=== PATIENT | male | born 1980 | race Caucasian/White ===

== ENCOUNTER → 2019-10-29 | Outpatient (CLI) | payer OTHER ==
--- NOTE | 2019-11-05 17:14 | REP ---
RIGHT FOOT SERIES CLINICAL: Nontraumatic heel pain. TECHNIQUE: AP, lateral, and bilateral oblique views of the right foot. FINDINGS: Osseous structures, joint spaces, and surrounding soft tissues appear relatively normal for age. No obvious acute injury. No healed abnormalities are identified. The surrounding soft tissues are clear and without subcutaneous emphysema or foreign body. IMPRESSION: Essentially age appropriate right foot examination. [id number]
== END ==
LOC: M WUC 09:10
PROVIDERS: ATTEND Physician Assistant
DX: M25.571 Pain in right ankle and joints of right foot (principal)

== ENCOUNTER 2020-10-19 10:00 | Emergency (ER) | payer OTHER ==
[~2020-10-19] VITALS: Ht 185.4 cm; Wt 209.0 kg
[2020-10-19] MEDS ORDERED: NS 1,000 ML IV ONE (10:10)
[2020-10-19] MEDS ORDERED: ISOVUE-370 76% 100ML VIAL As Ordered ONE (10:14)
[2020-10-19] MEDS ORDERED: HEPARIN SOD (PORCINE) 5000UNITS/ML 1ML VIAL/SYRINGE As Ordered ONE (10:17)
[2020-10-19 10:19] LABS: BASO # 0.1 10^3/uL (0.0-0.2); BASO % 0.3 % (0.0-1.0); EOS # 0.2 10^3/uL (0.0-0.5); EOS % 1.5 % (0.0-3.0); HEMATOCRIT 40.4 % (42.0-52.0); HEMOGLOBIN 12.6 g/dl (13.5-17.5); LYMPH # 2.7 10^3/uL (1.5-5.0); LYMPH % 16.6 % (24.0-44.0); MEAN CORPUSCULAR HEMOGLOBIN 28.8 pg (27.0-33.0); MEAN CORPUSCULAR HGB CONC 31.2 g/dl (32.0-36.5); MEAN CORPUSCULAR VOLUME 92.2 fl (80.0-96.0); MONO # 0.9 10^3/uL (0.0-0.8); MONO % 5.4 % (2.0-8.0); NEUTROPHILS # 12.5 10^3/uL (1.5-8.5); NEUTROPHILS % 75.5 % (36.0-66.0); PLATELET COUNT, AUTOMATED 308 10^3/uL (150-450); RED BLOOD COUNT 4.38 10^6/uL (4.30-6.10); WHITE BLOOD COUNT 16.5 10^3/uL (4.0-10.0)
[2020-10-19 10:29] LABS: INR 0.95
[2020-10-19 10:30] LABS: PARTIAL THROMBOPLASTIN TIME 23.4 SECONDS (25.9-37.0)
[2020-10-19] MEDS ORDERED: FURO20TA2 (10:38)
--- NOTE | 2020-10-19 10:49 | REPVR ---
PROCEDURE INFORMATION: Exam: CT Lumbar Spine Without Contrast Exam date and time: 10/19/2020 10:40 AM Age: 39 years old Clinical indication: Injury or trauma; Blunt trauma (contusions or hematomas) TECHNIQUE: Imaging protocol: Computed tomography images of the lumbar spine without contrast. Radiation optimization: All CT scans at this facility use at least one of these dose optimization techniques: automated exposure control; mA and/or kV adjustment per patient size (includes targeted exams where dose is matched to clinical indication); or iterative reconstruction. COMPARISON: No relevant prior studies available. FINDINGS: Vertebrae: No acute bony injury or malalignment in the lumbar spine. Contour irregularity involving the right L1 transverse process, believed to be chronic. Schmorl's nodes, vertebral endplate irregularity, and marginal osteophytes. Discs/Spinal canal/Neural foramina: No acute findings. Other bones/joints: Acute fracture involving the right 12th posterior rib. Liver: Fatty infiltration of the incompletely visualized liver. Spleen: Enlarged spleen measuring 12.5 cm in length. Kidneys and ureters: Poorly characterized 9 mm nodular hypodense lesion in the anterior left kidney. Soft tissues: Infiltration of right posterior subcutaneous fat. IMPRESSION: 1. No acute bony injury or malalignment in the lumbar spine. 2. Acute fracture involving the right 12th posterior rib. COMMENTS: Consistent with the [employer]'s Incidental Findings Committee white paper (J Am Autumn Radiol 2018): Any incidental renal lesion less than 1 cm or classified as too small to characterize, or any incidental cystic renal lesion characterized as simple-appearing, is likely benign. No follow-up imaging is recommended for these lesions per consensus recommendations based on imaging criteria. Electronically signed by: Luis Fernando Nix On 10/19/2020 10:49:31 AM
--- NOTE | 2020-10-19 10:49 | REP ---
INDICATION: Trauma COMPARISON: None TECHNIQUE: Axial contrast enhanced images from the thoracic inlet to the upper abdomen with coronal and sagittal reformations using 100 ml Isovue 370 intravenous contrast material. Coronal and sagittal reformations obtained followed by CT of the abdomen and pelvis. This CT examination was performed using the following dose reduction techniques: Automated exposure control, adjustment of mA and/or kv according to the patient's size, and use of iterative reconstruction technique. FINDINGS: Lung hopkins demonstrate decreased inspiratory effort causing subtle nonspecific ground-glass opacities primarily involving the lower lobes. No consolidation/contusion, effusion, or pneumothorax. Tracheobronchial tree is patent. Mediastinum demonstrates normal appearance of the thoracic aorta, pulmonary vasculature, and heart/pericardium. No adenopathy. Extremely subtle nondisplaced fractures are identified involving the anterolateral margins of the right 6th, 7th and 8th ribs. IMPRESSION: 1. Extremely subtle nondisplaced right sided rib fractures. No associated overlying soft tissue injury or underlying pleuroparenchymal injury. 2. No acute mediastinal or pleuroparenchymal process. <Electronically signed by Laek Mclean > 10/19/20 [id number]
[2020-10-19 10:54] LABS: ALT/SGPT 114 U/L (12-78); AMYLASE 21 U/L (25-115); BILIRUBIN,DIRECT 0.1 MG/DL (0.0-0.2); BILIRUBIN,TOTAL 0.5 MG/DL (0.2-1.0); BLOOD UREA NITROGEN 17 MG/DL (7-18); CALCIUM LEVEL 8.1 MG/DL (8.5-10.1); CARBON DIOXIDE LEVEL 27 MEQ/L (21-32); CHLORIDE LEVEL 107 MEQ/L (98-107); CK-MB VALUE MASS 1.3 NG/ML (<3.6); CPK CREATINE PHOSPHOKINASE 175 U/L (39-308); CREATININE FOR GFR 1.23 MG/DL (0.70-1.30); GLOMERULAR FILTRATION RATE > 60.0 (>60); GLUCOSE, FASTING 203 MG/DL (70-100); LIPASE 59 U/L (73-393); MB/CK RELATIVE INDEX 0.74 (< OR =4); SODIUM LEVEL 141 MEQ/L (136-145); TOTAL PROTEIN 6.2 GM/DL (6.4-8.2); TROPONIN I < 0.02 NG/ML (< 0.10)
--- NOTE | 2020-10-19 10:54 | REP ---
INDICATION: Trauma. COMPARISON: None TECHNIQUE: Axial contrast-enhanced images from the lung bases to the pubic symphysis using 100 cc Isovue 370 intravenous contrast material. Coronal and sagittal reformations obtained. This CT examination was performed using the following dose reduction techniques: Automated exposure control, adjustment of mA and/or kv according to the patient's size, and the use of iterative reconstruction technique. FINDINGS: Hepatomegaly and hepatosteatosis noted. Spleen, pancreas, gallbladder, bilateral adrenal glands and kidneys are normal. There is no evidence for solid organ injury. The enteric system is without acute obstruction, obvious injury or pathology. There is a peritoneal defect along the posterior right flank below the level of the kidney with herniation of the mesenteric fat and nonobstructed portion of the cecum into the deep subcutaneous right flank which is nonacute and should be correlated with prior surgical procedure (series 205; images 104-125). Pelvis demonstrates normal bladder and age-appropriate prostate/seminal vesicles. No ascites. No free air. No intraperitoneal or retroperitoneal adenopathy. Abdominal aorta and vasculature appear normal. Osseous structures are intact and without acute pathology or injury. IMPRESSION: 1. No acute abdominopelvic pathology appreciated. 2. No evidence for acute injury. 3. Peritoneal defect along the right flank with herniation of the mesenteric fat and nonobstructed cecum appears chronic and likely related to prior surgical procedure. <Electronically signed by Lake Mclean > 10/19/20 [id number]
[2020-10-19 11:00] LABS: RSV AMPLIFICATION NEGATIVE (NEGATIVE)
[2020-10-19] MEDS ORDERED: ceFAZolin SOD 2 GM in IV 1 EA IV ONE (11:10)
[2020-10-19] MEDS ORDERED: MORPHINE 2 MG/ML 1ML VIAL (J2270) IV PRN (11:20)
[2020-10-19] MEDS: BOOSTRIX/ADACEL VACCINE (DIPHTH/PERTUSS/ACELL/TETANUS) 0.5ML SYR IM ONE ×2 (12:09→12:13)
--- NOTE | 2020-10-19 12:29 | ER ---
ER TRAUMA CONSULTATION DATE: 10/19/2020 REASON FOR CONSULTATION: Crush injury of abdomen and pelvis. 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 He tried to jump out of the way and he was pinned between a concrete wall and the tie loader on his right side. He was transiently crushed against the wall and then the tie loader moved forward and he fell to the ground. He denies any loss of consciousness. He had no direct crush to his chest area. He complains primarily of pain in the right lower flank extending down into his hip and thigh area. He was brought urgently to the emergency department by ambulance. He was covered in cement dust, some gravel and water from lying on the floor of the plant. Because of concerns of a possible crush injury, I was called emergently as part of the trauma code as my partner, who was medical reception, was in the emergency department. His initial vital signs in the emergency department showed a pulse of 103, blood pressure of 112/69 and a pulse oximetry of 98% on room air. He was being transported to the CT scanner for an emergency CT scan of his chest, abdomen and pelvis when I arrived in the emergency department. Patient was awake and alert, appeared somewhat pale. Again, he complained primarily of pain in the right flank and hip area. MEDICATIONS: Patient's only reported medication is Lasix 20 mg daily. ALLERGIES: None known. MEDICAL HISTORY: Generally negative. He has not seen a physician in many years, but recently connected with a primary care provider. SURGICAL HISTORY: He denies any prior significant surgery. FAMILY HISTORY: Noncontributory. PHYSICAL EXAMINATION: GENERAL: Reveals a pleasant gentleman lying on the stretcher. He is clearly morbidly obese with a weight of perhaps 400 pounds. He is alert. HEENT: Face is without any evidence of trauma. Sclerae are anicteric. Mucous membranes are moist. The neck is without mass or evidence of injury. HEART EXAM: Shows a regular rhythm at approximately 100. LUNGS: Clear to auscultation bilaterally. ABDOMEN: Markedly obese. He does have some bowel sounds present. The abdomen anteriorly is soft and without significant tenderness. There is some asymmetry to the abdominal wall with some prominence to the right flank and extending down into the right thigh with evidence of some bruising and some small areas of scattered hemorrhage of the soft tissues. It is difficult to feel the pelvis anteriorly, but this would appear to be stable. There is no evidence anteriorly of a genital injury. EXTREMITIES: The upper extremities have full range of motion, palpable radial pulses and no evidence of injury. The lower extremities show signs of marked obesity of the thighs. He has no evidence of bony injuries and he has warm feet with palpable pulses. \ Examination of the perineum, which was completed after his CT scan, shows an irregular laceration of the perianal area on the right hand side. Visualization of this area is difficult because of his obesity. He does have a large laceration with subcutaneous fat protruding and there is stool in the wound suggesting to me a disruption of the rectum at the anal verge, though I cannot see this area directly. LABORATORY STUDIES: Include a CBC showing a white count of 16, hemoglobin 13, hematocrit 40, and a platelet count of 308,000. Differential count shows 76% neutrophils, lymphocytes are 17%, monocytes are 5%. Coags are normal. Chemistry profile shows normal electrolytes with a BUN of 17, creatinine 1.23 and a glucose of 203. Liver function tests show very slight elevations of the AST and ALT to 94 and 114. Alkaline phosphatase and total bilirubin are normal. Amylase and lipase are normal. COVID serology is negative. IMAGING DATA: Included a CT scan of the chest. The CT scan of the chest shows no evidence of pneumothorax or hemothorax. The radiologist suggested the possibility of very subtle fractures of ribs 7, 8 and 9 approximately on the right hand side anterolaterally. There is no gross chest wall deformity. There is no mediastinal hemorrhage. A CT scan of the abdomen and pelvis was obtained. There is no free air identified. There is no definite free fluid. The liver, spleen and kidneys appear intact without evident injury. There is a discontinuity in the abdominal wall on the right hand side, where the abdominal wall musculature is not attached to the iliac crest posteriorly on the right with protrusion of abdominal fat in the cecum through this defect. There do appear to be some areas of hemorrhage around this and with no prior history of surgery, I suspect this represents a new tear of the abdominal wall. There is, in my view, a subtle irregularly at the sacroiliac joint on the right, though it appears to be well-aligned and there are no other suggestions of pelvic ring fractures on my review. He does have some irregularity in the anal area of the study. This is on the right posteriorly. He has a few small air bubbles in the soft tissues in the perineum and around the base of the penis on the right. A CT scan of the lumbosacral spine I reviewed personally and I do not see any evidence of an acute fracture. IMPRESSION: A 39-year-old man with crush injury after being pinned in a tie loader and a concrete wall. He has what appears to be an acute tear of the abdominal wall on the right hand side. He has several subtle, but definite, fractures on the right-sided ribs, including 11 and 12 certainly and perhaps 7, 8 and 9. There is a perineal injury which is difficult to evaluate, but I suspect he has a laceration through the anal verge and certainly, there is a large soft tissue injury in this area. He does not appear to have any other acute intraabdominal or solid organ injuries and there is no significant evidence of chest trauma. RECOMMENDATIONS: At this point, I think the patient should probably be transferred to a tertiary care center. Though I have not been able to obtain a thorough exam on the anal/rectal area, I suspect there is a significant injury in this area that will require the services of a colorectal surgeon. He will likely need a diverting colostomy to allow healing of this wound. The tear of the abdominal wall on the right may also require further surgical intervention. His morbid obesity certainly will complicate his care by making management somewhat more difficult. A Morejon catheter was inserted and there was no blood either before or after insertion and this was inserted without significant difficulty. He has received 2 grams of Ancef and is receiving morphine for analgesia. Again, I believe his best approach would be for transfer to a higher level of care for further assessment and treatment of his perineal wound and perhaps his right flank injury as well.
[2020-10-19 12:36] VITALS: BP 110/56
== END 2020-10-19 12:42 | disposition short-term general hospital (02) ==
LOC: M ED 10:00 → EDBD 10:00 → M ED 12:42
DX: S31.619A Laceration without foreign body of abdominal wall, unspecified quadrant with penetration into peritoneal cavity, initial encounter (principal); S38.1XXA Crushing injury of abdomen, lower back, and pelvis, initial encounter; S22.41XA Multiple fractures of ribs, right side, initial encounter for closed fracture; V09.09XA Pedestrian injured in nontraffic accident involving other motor vehicles, initial encounter; Y99.0 Civilian activity done for income or pay; Y92.9 Unspecified place or not applicable; Y93.9 Activity, unspecified
CPT/HCPCS: 51702; 71260; 72131; 74177; 80047; 80048; 80076; 81001; 82150; 82550; 82553; 83605; 83690; 84484; 85025; 85610; 85730; 86850; 86900; 86901; 86920; 87631; 93041; 94760; 96374; 99285; J0690; J1644; J2270; Q9967